=== PATIENT | male | born 1955 | race Caucasian/White ===

== ENCOUNTER 2016-09-19 09:52 | Inpatient (IN) | payer MEDICAID ==
[~2016-09-19] VITALS: Ht 152.4 cm; Wt 61.7 kg
[2016-09-19] VITALS: BP 116/79
[2016-09-19] MEDS ORDERED: METO100T5 PO (11:13)
[2016-09-19] MEDS ORDERED: LISI-186 PO (11:13)
[2016-09-19] MEDS ORDERED: ATOR80TA PO (11:13)
[2016-09-19] MEDS ORDERED: ASPI-867 PO (11:13)
[2016-09-19 11:20] LABS: CHLORIDE 103 mEq/L (98-107); HEMATOCRIT. 46.1 % (42.0-52.0); HEMOGLOBIN. 15.7 g/dL (14.0-18.0); INDEX HEMOLYSI 1 (1-3); INDEX ICTERIC 1 (1-4); INDEX LIPEMIC 1 (1-3); MEAN CORPUSCULAR HEMOGLOBIN 31.2 pg (28.0-32.0); MEAN CORPUSCULAR HGB CONC 34.1 g/dL (31.0-37.0); MEAN CORPUSCULAR VOLUME 91.4 fL (80.0-94.0); MEAN PLATELET VOLUME 8.1 fl (7.4-10.4); PLATELET 265 x1000/uL (130-400); RED BLOOD CELL COUNT 5.04 mill/uL (4.7-6.1); RED CELL DISTRIBUTION WIDTH 14.2 % (11.6-14.6); WHITE BLOOD COUNT 15.1 x1000/uL (4.5-11.0)
[2016-09-19 11:28] LABS: ALANINE AMINOTRANSFERASE 42 IU/L (13-61); ALBUMIN 3.9 g/dL (3.4-5.0); ANION GAP 15; CALCIUM 8.5 mg/dL (8.5-10.1); CARBON DIOXIDE 23 mEq/L (21-32); DIFFERENTIAL COMMENT 1; ETHANOL BLOOD < 10 mg/dL; UREA NITROGEN BLOOD 9 mg/dL (7-21)
[2016-09-19 11:30] LABS: eGFR > 60 mL/min (>60)
[2016-09-19 11:34] LABS: PHENYTOIN < 0.4 ug/mL (10-20); VALPROIC ACID < 3.0 ug/mL (50-100)
[2016-09-19 12:05] LABS: PLATELET ESTIMATE NORMAL
[2016-09-19 12:27] LABS: CLARITY URINE CLEAR (CLEAR); COLOR URINE YELLOW (YELLOW); GLUCOSE URINE NEGATIVE (NEGATIVE); KETONES URINE NEGATIVE (NEGATIVE); LEUKOCYTE ESTERASE URINE NEGATIVE (NEGATIVE); NITRITE URINE NEGATIVE (NEGATIVE); OCCULT BLOOD URINE 2+ (NEGATIVE); PH URINE 5.5 (4.5-8.0); PROTEIN URINE 1+ (NEGATIVE); SPECIFIC GRAVITY URINE 1.016 (1.005-1.030); UROBILINOGEN URINE 0.2 E.U./dL (0.2-1.0)
[2016-09-19 12:36] LABS: *AMPHETAMINES SCREEN URINE NEGATIVE (NEGATIVE); *BARBITURATES SCREEN URINE NEGATIVE (NEGATIVE); *BENZODIAZEPINES SCREEN URINE NEGATIVE (NEGATIVE); *COCAINE SCREEN URINE NEGATIVE (NEGATIVE); CANNABINOID URINE SCREEN NEGATIVE (NEGATIVE); ECSTASY MDMA SCREEN URINE NEGATIVE (NEGATIVE); METHADONE URINE SCREEN NEGATIVE (NEGATIVE); OPIATES URINE SCREEN NEGATIVE (NEGATIVE); PHENCYCLIDINE URINE SCREEN NEGATIVE (NEGATIVE)
[2016-09-19 12:49] LABS: BACTERIA URINE 1+; MUCUS URINE 1+ /lpf (NONE/TRACE); WBC URINE 0-2 /hpf (0-2)
[2016-09-19 12:50] LABS: FINE GRANULAR CASTS URINE 0-5 /lpf; HYALINE CASTS URINE 0-5 /lpf
[2016-09-19 12:51] LABS: COARSE GRANULAR CASTS URINE 0-5 /lpf
[2016-09-19] MEDS ORDERED: LORAZEPAM 2MG/ML CPJ ONE (13:08)
[2016-09-19] MEDS ORDERED: LORAZEPAM 2MG/ML CPJ IV ONE (13:15)
[2016-09-19] MEDS ORDERED: PHENYTOIN SODIUM 100MG/2ML VIAL IV ONE ×2 (13:15→13:30)
[2016-09-19] MEDS ORDERED: PHENYTOIN SODIUM 500 MG in SODIUM CHLORIDE 0.9% 50 ML IV SCH (13:30)
[2016-09-19] MEDS ORDERED: FOLIC ACID 1 MG, THIAMINE HCL 100 MG, MVI, ADULT NO.1 10 ML in DEXTROSE 5% WATER 1,000 ML IV ONE ×4 (13:45)
[2016-09-19] MEDS ORDERED: SULFAMETHOXAZOLE/TRIMETHOPRIM 800/160MG TABLET PO ONE (17:00)
[2016-09-19 20:00] VITALS: BP 116/79
[2016-09-19] MEDS ORDERED: LORAZEPAM 2MG/ML CPJ IV PRN (21:00)
[2016-09-19] MEDS ORDERED: DOCUSATE SODIUM 100MG CAPSULE PO PRN (21:00)
[2016-09-19] MEDS ORDERED: ONDANSETRON HCL 4MG/2ML VIAL IV PRN (21:00)
[2016-09-19] MEDS: ACETAMINOPHEN 325MG TABLET PO PRN (22:32)
[2016-09-19 22:47] VITALS: BP 127/88
[2016-09-20] VITALS: BP 115/76
[2016-09-20 04:00] VITALS: BP 114/69
[2016-09-20] MEDS: ACETAMINOPHEN 325MG TABLET PO PRN (04:29)
[2016-09-20 06:16] LABS: BASOPHILS % 0.5 % (0.0-2.0); EOSINOPHILS % 0.1 % (0.0-5.0); HEMATOCRIT. 45.1 % (42.0-52.0); HEMOGLOBIN. 15.5 g/dL (14.0-18.0); LYMPHOCYTES % 11.9 % (20.0-50.0); MEAN CORPUSCULAR HEMOGLOBIN 31.3 pg (28.0-32.0); MEAN CORPUSCULAR HGB CONC 34.4 g/dL (31.0-37.0); MEAN CORPUSCULAR VOLUME 90.9 fL (80.0-94.0); MEAN PLATELET VOLUME 8.1 fl (7.4-10.4); MONOCYTES % 13.3 % (2.0-8.0); NEUTROPHILS % 74.2 % (40.0-76.0); PLATELET 276 x1000/uL (130-400); RED BLOOD CELL COUNT 4.96 mill/uL (4.7-6.1); RED CELL DISTRIBUTION WIDTH 14.3 % (11.6-14.6); WHITE BLOOD COUNT 13.4 x1000/uL (4.5-11.0)
[2016-09-20 07:46] LABS: CHLORIDE 101 mEq/L (98-107); INDEX HEMOLYSI 1 (1-3); INDEX ICTERIC 1 (1-4); INDEX LIPEMIC 1 (1-3)
[2016-09-20 07:55] LABS: ALANINE AMINOTRANSFERASE 37 IU/L (13-61); ALBUMIN 3.7 g/dL (3.4-5.0); ANION GAP 14; CALCIUM 8.8 mg/dL (8.5-10.1); CARBON DIOXIDE 24 mEq/L (21-32); PHENYTOIN 3.9 ug/mL (10-20); UREA NITROGEN BLOOD 10 mg/dL (7-21); eGFR > 60 mL/min (>60)
[2016-09-20 08:00] VITALS: BP 108/72
[2016-09-20] MEDS ORDERED: POTASSIUM CHLORIDE 20MEQ TABLET SR PO SCH (09:00)
[2016-09-20] MEDS ORDERED: FOLIC ACID 1MG TABLET PO SCH (09:00)
[2016-09-20] MEDS ORDERED: MULTIVITAMINS,THER W-MINERALS TABLET PO SCH (09:00)
[2016-09-20] MEDS ORDERED: THIAMINE HCL 100MG TABLET PO SCH (09:00)
[2016-09-20 12:00] VITALS: BP 117/68
[2016-09-20 16:00] VITALS: BP 114/79
[2016-09-20] MEDS ORDERED: PHENYTOIN SODIUM 500 MG in SODIUM CHLORIDE 0.9% 50 ML IV NR (16:30)
[2016-09-20] MEDS ORDERED: PHENYTOIN SODIUM EXTENDED 100MG CAPSULE PO NR (18:00)
[2016-09-20] MEDS ORDERED: PHENYTOIN SODIUM EXTENDED 100MG CAPSULE PO SCH (21:00)
== END 2016-09-20 18:19 | disposition home or self-care (01) | DRG 775 ==
LOC: ER 09:57 → SUPCPDRO 16:52 → 7WST 16:54
PROVIDERS: ADMIT Family Medicine Adult Medicine; ATTEND Family Medicine Adult Medicine
DX: F10.129 Alcohol abuse with intoxication, unspecified (principal); N04.9 Nephrotic syndrome with unspecified morphologic changes; I10 Essential (primary) hypertension; G40.909 Epilepsy, unspecified, not intractable, without status epilepticus; N39.0 Urinary tract infection, site not specified; I25.10 Atherosclerotic heart disease of native coronary artery without angina pectoris; E78.00 Pure hypercholesterolemia, unspecified; R73.9 Hyperglycemia, unspecified; E86.0 Dehydration; D72.829 Elevated white blood cell count, unspecified; I25.2 Old myocardial infarction; Z91.19 Patient's noncompliance with other medical treatment and regimen
CPT/HCPCS: 36415; 70450; 70551; 71010; 73030; 80053; 80165; 80185; 80305; 81001; 83036; 85025; 96365; 96366; 96368; 96375; 99285; G0482; J1165; J2060; J3411; J3490; J7050; J7070

== ENCOUNTER 2017-01-22 08:38 | Emergency (ER) | payer MEDICAID ==
[~2017-01-22] VITALS: Ht 152.4 cm; Wt 64.0 kg
[~2017-01-22 08:38] MED LIST: ASPI-867 PO; ATOR80TA PO; LISI-186 PO; METO100T5 PO
[2017-01-22] MEDS ORDERED: SODIUM CHLORIDE 0.9% 500 ML IV ONE (09:30)
[2017-01-22 09:47] LABS: BASOPHILS % 0.5 % (0.0-2.0); EOSINOPHILS % 0.3 % (0.0-5.0); HEMATOCRIT. 50.5 % (42.0-52.0); HEMOGLOBIN. 17.1 g/dL (14.0-18.0); LYMPHOCYTES % 8.9 % (20.0-50.0); MEAN CORPUSCULAR HEMOGLOBIN 31.3 pg (28.0-32.0); MEAN CORPUSCULAR VOLUME 92.3 fL (80.0-94.0); MEAN PLATELET VOLUME 7.8 fl (7.4-10.4); MONOCYTES % 6.2 % (2.0-8.0); NEUTROPHILS % 84.1 % (40.0-76.0); PLATELET 246 x1000/uL (130-400); RED BLOOD CELL COUNT 5.47 mill/uL (4.7-6.1); RED CELL DISTRIBUTION WIDTH 13.7 % (11.6-14.6)
[2017-01-22 09:52] LABS: CARBON DIOXIDE 29 mEq/L (21-32); CHLORIDE 103 mEq/L (98-107)
[2017-01-22] MEDS ORDERED: PHENYTOIN SODIUM 1,000 MG in SODIUM CHLORIDE 0.9% 100 ML IV ONE (12:45)
[2017-01-22 14:52] VITALS: BP 131/79
== END 2017-01-22 15:47 | disposition home or self-care (01) ==
LOC: ER 08:38
DX: G40.909 Epilepsy, unspecified, not intractable, without status epilepticus (principal); I25.2 Old myocardial infarction; I25.10 Atherosclerotic heart disease of native coronary artery without angina pectoris; E78.00 Pure hypercholesterolemia, unspecified; I11.9 Hypertensive heart disease without heart failure; D72.829 Elevated white blood cell count, unspecified; E87.5 Hyperkalemia; R73.9 Hyperglycemia, unspecified; Z79.82 Long term (current) use of aspirin
CPT/HCPCS: 36415; 80053; 80185; 85025; 93005; 96361; 96365; 96366; 99285; J1165; J7040; J7050; Z7610

== ENCOUNTER 2017-02-11 08:44 | Emergency (ER) | payer MEDICAID ==
[~2017-02-11] VITALS: Ht 157.5 cm; Wt 68.0 kg
[2017-02-11] MEDS ORDERED: ONDANSETRON HCL 4MG/2ML VIAL IV ONE (09:30)
[2017-02-11 09:43] LABS: HEMATOCRIT. 47.9 % (42.0-52.0); HEMOGLOBIN. 16.3 g/dL (14.0-18.0); MEAN CORPUSCULAR HEMOGLOBIN 31.2 pg (28.0-32.0); MEAN CORPUSCULAR VOLUME 91.6 fL (80.0-94.0); MEAN PLATELET VOLUME 8.6 fl (7.4-10.4); PLATELET 252 x1000/uL (130-400); RED BLOOD CELL COUNT 5.23 mill/uL (4.7-6.1); RED CELL DISTRIBUTION WIDTH 13.4 % (11.6-14.6)
[2017-02-11 09:59] LABS: CLARITY URINE CLOUDY (CLEAR); COLOR URINE YELLOW (YELLOW); GLUCOSE URINE NEGATIVE (NEGATIVE); KETONES URINE NEGATIVE (NEGATIVE); LEUKOCYTE ESTERASE URINE NEGATIVE (NEGATIVE); NITRITE URINE NEGATIVE (NEGATIVE); OCCULT BLOOD URINE 1+ (NEGATIVE); PH URINE 5.5 (4.5-8.0); PROTEIN URINE TRACE (NEGATIVE); SPECIFIC GRAVITY URINE 1.016 (1.005-1.030); UROBILINOGEN URINE 0.2 E.U./dL (0.2-1.0)
[2017-02-11 10:03] LABS: CARBON DIOXIDE 20 mEq/L (21-32); CHLORIDE 105 mEq/L (98-107)
[2017-02-11 10:16] LABS: PLATELET ESTIMATE NORMAL
[2017-02-11] MEDS ORDERED: PHENYTOIN SODIUM 1,000 MG in SODIUM CHLORIDE 0.9% 100 ML IV ONE (10:45)
[2017-02-11] MEDS ORDERED: SODIUM CHLORIDE 0.9% 1,000 ML IV ONE (11:00)
[2017-02-11] MEDS ORDERED: PHENYTOIN SODIUM 1,000 MG in SODIUM CHLORIDE 0.9% 100 ML IV NR (11:15)
[2017-02-11 12:08] VITALS: BP 125/76
== END 2017-02-11 13:38 | disposition home or self-care (01) ==
LOC: ER 08:44 → ENRESERV 11:39 → CANRESERV 11:39 → ER 13:38 → CANBEDREQ 14:35
DX: R56.9 Unspecified convulsions (principal); D72.829 Elevated white blood cell count, unspecified; I10 Essential (primary) hypertension; Z79.82 Long term (current) use of aspirin; W06.XXXA Fall from bed, initial encounter; Y93.89 Activity, other specified; Y99.8 Other external cause status; Y92.89 Other specified places as the place of occurrence of the external cause
CPT/HCPCS: 36415; 71010; 80053; 80185; 81001; 85025; 96365; 96375; 99285; J1165; J2405; J7030; Z7610; J7050

== ENCOUNTER 2017-09-14 21:38 | Emergency (ER) | payer SELFPAY ==
[~2017-09-14] VITALS: Ht 165.1 cm; Wt 68.0 kg
[~2017-09-14 21:38] MED LIST changes: +METO100T16 PO; -METO100T5 PO
[2017-09-14] MEDS ORDERED: SODIUM CHLORIDE 0.9% 1,000 ML IV ONE (23:36)
[2017-09-15 00:07] LABS: BASOPHILS % 0.5 % (0.0-2.0); EOSINOPHILS % 0.1 % (0.0-5.0); HEMATOCRIT. 45.4 % (42.0-52.0); HEMOGLOBIN. 15.7 g/dL (14.0-18.0); MEAN CORPUSCULAR HEMOGLOBIN 31.3 pg (28.0-32.0); MEAN CORPUSCULAR VOLUME 90.4 fL (80.0-94.0); MEAN PLATELET VOLUME 8.1 fl (7.4-10.4); MONOCYTES % 6.4 % (2.0-8.0); PLATELET 270 x1000/uL (130-400); RED BLOOD CELL COUNT 5.02 mill/uL (4.7-6.1); RED CELL DISTRIBUTION WIDTH 13.6 % (11.6-14.6)
[2017-09-15 00:09] LABS: CHLORIDE 101 mEq/L (98-107)
[2017-09-15 00:15] LABS: AMMONIA 39 uMol/L (<32)
[2017-09-15 00:17] LABS: ETHANOL BLOOD < 10 mg/dL
[2017-09-15 00:20] LABS: CREATINE KINASE 692 IU/L (39-308)
[2017-09-15 00:29] LABS: CARBAMAZEPINE < 0.5 ug/mL (4-12); PHENOBARBITAL < 2.1 ug/mL (15.0-40.0); VALPROIC ACID < 3.0 ug/mL (50-100)
[2017-09-15 00:34] LABS: PROTHROMBIN TIME 10.7 sec (9.4-11.6)
[2017-09-15 01:10] LABS: CLARITY URINE CLEAR (CLEAR); COLOR URINE YELLOW (YELLOW); KETONES URINE NEGATIVE (NEGATIVE); LEUKOCYTE ESTERASE URINE NEGATIVE (NEGATIVE); NITRITE URINE NEGATIVE (NEGATIVE); OCCULT BLOOD URINE NEGATIVE (NEGATIVE); PROTEIN URINE NEGATIVE (NEGATIVE); SPECIFIC GRAVITY URINE 1.007 (1.005-1.030); UROBILINOGEN URINE 0.2 E.U./dL (0.2-1.0)
[2017-09-15 01:26] LABS: *AMPHETAMINES SCREEN URINE NEGATIVE (NEGATIVE); *BARBITURATES SCREEN URINE NEGATIVE (NEGATIVE); *COCAINE SCREEN URINE NEGATIVE (NEGATIVE)
[2017-09-15 01:27] LABS: *BENZODIAZEPINES SCREEN URINE NEGATIVE (NEGATIVE); CANNABINOID URINE SCREEN NEGATIVE (NEGATIVE); METHADONE URINE SCREEN NEGATIVE (NEGATIVE); OPIATES URINE SCREEN NEGATIVE (NEGATIVE); PHENCYCLIDINE URINE SCREEN NEGATIVE (NEGATIVE)
[2017-09-15] MEDS: LACTULOSE 20G/30ML UDC PO NR ×2 (04:36→06:15)
[2017-09-15] MEDS: PHENYTOIN SODIUM 1,000 MG in SODIUM CHLORIDE 0.9% 100 ML IV NR ×2 (04:37→06:15)
[2017-09-15] MEDS ORDERED: ACETAMINOPHEN 325MG TABLET PO ONE (05:30)
[2017-09-15 06:14] VITALS: BP 124/76
== END 2017-09-15 06:28 | disposition home or self-care (01) ==
LOC: ER 21:48 → CANBEDREQ 09-15 06:32
DX: G40.909 Epilepsy, unspecified, not intractable, without status epilepticus (principal); Z91.14 Patient's other noncompliance with medication regimen; I10 Essential (primary) hypertension; Z79.82 Long term (current) use of aspirin; Z79.899 Other long term (current) drug therapy
CPT/HCPCS: 36415; 70450; 71045; 80053; 80156; 80165; 80184; 80185; 80305; 81003; 82140; 82550; 83605; 83690; 83880; 84443; 84484; 85025; 85610; 87040; 87086; 93005; 96361; 96365; 96366; 99285; G0482; J1165; J7030; Z7610; J7050

== ENCOUNTER 2019-04-06 07:50 | Emergency (ER) | payer OTHER ==
[~2019-04-06] VITALS: Ht 165.1 cm; Wt 68.0 kg
[~2019-04-06 07:50] MED LIST changes: -ASPI-867 PO; +ASPI325T85 PO
[2019-04-06 08:53] LABS: CLARITY URINE CLEAR (CLEAR); COLOR URINE YELLOW (YELLOW); KETONES URINE NEGATIVE (NEGATIVE); LEUKOCYTE ESTERASE URINE NEGATIVE (NEGATIVE); NITRITE URINE NEGATIVE (NEGATIVE); OCCULT BLOOD URINE NEGATIVE (NEGATIVE); PH URINE 5.5 (4.5-8.0); PROTEIN URINE TRACE (NEGATIVE); SPECIFIC GRAVITY URINE 1.015 (1.005-1.030); UROBILINOGEN URINE 0.2 E.U./dL (0.2-1.0)
[2019-04-06 09:06] LABS: OPIATES URINE SCREEN NEGATIVE (NEGATIVE)
[2019-04-06 09:07] LABS: *AMPHETAMINES SCREEN URINE NEGATIVE (NEGATIVE); *BARBITURATES SCREEN URINE NEGATIVE (NEGATIVE); *BENZODIAZEPINES SCREEN URINE NEGATIVE (NEGATIVE); *COCAINE SCREEN URINE NEGATIVE (NEGATIVE); CANNABINOID URINE SCREEN NEGATIVE (NEGATIVE); METHADONE URINE SCREEN NEGATIVE (NEGATIVE); PHENCYCLIDINE URINE SCREEN NEGATIVE (NEGATIVE)
[2019-04-06 11:01] LABS: BASOPHILS % 0.4 % (0.0-2.0); EOSINOPHILS % 0.5 % (0.0-5.0); HEMATOCRIT. 47.5 % (42.0-52.0); HEMOGLOBIN. 16.2 g/dL (14.0-18.0); LYMPHOCYTES % 17.1 % (20.0-50.0); MEAN CORPUSCULAR HEMOGLOBIN 32.4 pg (28.0-32.0); MEAN PLATELET VOLUME 8.9 fl (7.4-10.4); MONOCYTES % 9.4 % (2.0-8.0); NEUTROPHILS % 72.6 % (40.0-76.0); PLATELET 188 x1000/uL (130-400); RED CELL DISTRIBUTION WIDTH 14.1 % (11.6-14.6)
[2019-04-06 11:07] LABS: CHLORIDE 105 mEq/L (98-107)
[2019-04-06 11:13] LABS: ETHANOL BLOOD < 10 mg/dL
[2019-04-06 13:31] VITALS: BP 128/69
== END 2019-04-06 13:35 | disposition home or self-care (01) ==
LOC: ER 07:50
DX: G40.909 Epilepsy, unspecified, not intractable, without status epilepticus (principal); I10 Essential (primary) hypertension
CPT/HCPCS: 36415; 71045; 80305; 80320; 81003; 99284; G0480

== ENCOUNTER 2020-01-07 08:36 | Inpatient (IN) | payer MEDICAID, OTHER ==
[~2020-01-07] VITALS: Ht 165.1 cm; Wt 57.2 kg
[~2020-01-07 08:36] MED LIST changes: +ATOR20TA MT; +DIVA500T3 PO; +KEPP500 MT
[2020-01-07] MEDS ORDERED: ASPIRIN 325MG TABLET PO ONE (09:15)
[2020-01-07 09:32] LABS: BASOPHILS % 1.2 % (0.0-2.0); EOSINOPHILS % 2.8 % (0.0-5.0); HEMATOCRIT. 44.7 % (42.0-52.0); HEMOGLOBIN. 15.3 g/dL (14.0-18.0); LYMPHOCYTES % 31.4 % (20.0-50.0); MEAN CORPUSCULAR HEMOGLOBIN 32.6 pg (28.0-32.0); MEAN CORPUSCULAR VOLUME 95.1 fL (80.0-94.0); MEAN PLATELET VOLUME 8.3 fl (7.4-10.4); MONOCYTES % 10.9 % (2.0-8.0); NEUTROPHILS % 53.7 % (40.0-76.0); PLATELET 223 x1000/uL (130-400); RED CELL DISTRIBUTION WIDTH 13.3 % (11.6-14.6)
[2020-01-07 09:40] LABS: CHLORIDE 107 mEq/L (98-107)
[2020-01-07 09:44] LABS: PARTIAL THROMBOPLASTIN TIME 31.1 sec (23.4-31.0); PROTHROMBIN TIME 10.4 sec (9.6-11.0)
[2020-01-07 09:49] LABS: ETHANOL BLOOD < 10 mg/dL
[2020-01-07] MEDS ORDERED: ASPIRIN 81MG EC TABLET PO ONE (11:30)
[2020-01-07] MEDS ORDERED: ACETAMINOPHEN 325MG TABLET PO PRN (12:00)
[2020-01-07] MEDS ORDERED: NITROGLYCERIN 0.4MG TABLET SL SL PRN (12:00)
[2020-01-07] MEDS ORDERED: TRAZODONE HCL 50MG TABLET PO PRN (12:00)
[2020-01-07] MEDS ORDERED: HYDRALAZINE 20MG/ML VIAL IV PRN (12:00)
[2020-01-07] MEDS ORDERED: ONDANSETRON HCL 4MG/2ML INJ IV PRN (12:00)
[2020-01-07] MEDS ORDERED: HYDROCODONE/ACETAMINOPHEN 5/325MG TABLET PO PRN ×2 (12:00)
[2020-01-07] MEDS ORDERED: LEVETIRACETAM 500MG PREMIX 100 ML IV SCH ×2 (12:15→15:00)
[2020-01-07] MEDS ORDERED: LEVETIRACETAM 500MG TABLET PO SCH (12:30)
[2020-01-07 14:00] VITALS: BP 149/78
[2020-01-07 16:00] VITALS: BP 134/72
[2020-01-07] MEDS: DIVALPROEX SODIUM 500MG DR TABLET PO SCH (18:02)
[2020-01-07 20:00] VITALS: BP_SYST 113; BP_SYST 127; BP_DIAS 72; BP_DIAS 73
[2020-01-07] MEDS ORDERED: ATORVASTATIN CALCIUM 20MG TABLET PO SCH (21:00)
[2020-01-07] MEDS: LEVETIRACETAM 500MG TABLET PO SCH (21:45)
[2020-01-07] MEDS: ATORVASTATIN CALCIUM 40MG TABLET PO SCH (21:45)
[2020-01-07] MEDS: HEPARIN 5000 UNITS/ML VIAL SUBCUT SCH (21:46)
[2020-01-08] VITALS (8 sets, daily range): BP systolic 96–133; BP diastolic 64–79
[2020-01-08 06:57] LABS: CHLORIDE 106 mEq/L (98-107)
[2020-01-08 07:04] LABS: LDL CHOLESTEROL 152 mg/dL (5-100)
[2020-01-08 07:05] LABS: HDL CHOLESTEROL 52 mg/dL (40-59)
[2020-01-08 07:13] LABS: BASOPHILS % 0.9 % (0.0-2.0); EOSINOPHILS % 2.7 % (0.0-5.0); HEMATOCRIT. 44.1 % (42.0-52.0); HEMOGLOBIN. 15.4 g/dL (14.0-18.0); LYMPHOCYTES % 33.9 % (20.0-50.0); MEAN CORPUSCULAR HEMOGLOBIN 32.9 pg (28.0-32.0); MEAN CORPUSCULAR VOLUME 94.3 fL (80.0-94.0); MEAN PLATELET VOLUME 8.7 fl (7.4-10.4); MONOCYTES % 8.8 % (2.0-8.0); NEUTROPHILS % 53.7 % (40.0-76.0); PLATELET 222 x1000/uL (130-400); RED BLOOD CELL COUNT 4.67 mill/uL (4.7-6.1); RED CELL DISTRIBUTION WIDTH 13.3 % (11.6-14.6)
[2020-01-08] MEDS: HEPARIN 5000 UNITS/ML VIAL SUBCUT SCH ×2 (09:00→20:45)
[2020-01-08] MEDS ORDERED: ASPIRIN 81MG EC TABLET PO SCH (09:00)
[2020-01-08] MEDS ORDERED: HEPARIN SODIUM 1,000 UNIT/1ML VIAL IV ONE (10:00)
[2020-01-08] MEDS ORDERED: IODIXANOL 320MG/ML 100 ML BOTTLE IV ONE (12:18)
[2020-01-08] MEDS ORDERED: MIDAZOLAM HCL 2 MG/2 ML VIAL ONE (12:18)
[2020-01-08] MEDS ORDERED: FENTANYL CITRATE/PF 50MCG/ML 2ML VIAL ONE (12:18)
[2020-01-08] MEDS ORDERED: LIDOCAINE HCL 1% 20ML VIAL (Pyxis) INJ ONE (12:18)
[2020-01-08] MEDS ORDERED: IOHEXOL-300 100 ML BOTTLE ONE (13:06)
[2020-01-08] MEDS ORDERED: CLOPIDOGREL 75MG TABLET ONE (13:12)
[2020-01-08] MEDS ORDERED: ACETAMINOPHEN 325MG TABLET PO PRN (13:45)
[2020-01-08] MEDS ORDERED: ONDANSETRON HCL 4MG/2ML INJ IV PRN (13:45)
[2020-01-08] MEDS ORDERED: ATROPINE SULFATE 1MG/10ML SYR IV PRN (13:45)
[2020-01-08] MEDS ORDERED: ASPIRIN 325MG TABLET ONE (13:47)
[2020-01-08] MEDS: LEVETIRACETAM 500MG TABLET PO SCH ×2 (15:43→20:45)
[2020-01-08] MEDS: DIVALPROEX SODIUM 500MG DR TABLET PO SCH (15:43)
[2020-01-08] MEDS: ATORVASTATIN CALCIUM 40MG TABLET PO SCH (20:45)
[2020-01-09] VITALS (7 sets, daily range): BP systolic 107–134; BP diastolic 66–86
[2020-01-09 06:24] LABS: BASOPHILS % 0.7 % (0.0-2.0); EOSINOPHILS % 4.3 % (0.0-5.0); HEMATOCRIT. 43.8 % (42.0-52.0); HEMOGLOBIN. 15.1 g/dL (14.0-18.0); LYMPHOCYTES % 28.3 % (20.0-50.0); MEAN CORPUSCULAR HEMOGLOBIN 32.9 pg (28.0-32.0); MEAN CORPUSCULAR VOLUME 95.5 fL (80.0-94.0); MEAN PLATELET VOLUME 8.3 fl (7.4-10.4); MONOCYTES % 10.4 % (2.0-8.0); NEUTROPHILS % 56.3 % (40.0-76.0); PLATELET 215 x1000/uL (130-400); RED BLOOD CELL COUNT 4.58 mill/uL (4.7-6.1); RED CELL DISTRIBUTION WIDTH 13.2 % (11.6-14.6)
[2020-01-09 06:53] LABS: CHLORIDE 107 mEq/L (98-107)
[2020-01-09] MEDS ORDERED: ASPIRIN 325MG TABLET PO SCH (09:00)
[2020-01-09] MEDS ORDERED: CLOPIDOGREL 75MG TABLET PO SCH (09:00)
[2020-01-09] MEDS: HEPARIN 5000 UNITS/ML VIAL SUBCUT SCH (09:01)
[2020-01-09] MEDS: DIVALPROEX SODIUM 500MG DR TABLET PO SCH (09:01)
[2020-01-09] MEDS: LEVETIRACETAM 500MG TABLET PO SCH (09:01)
== END 2020-01-09 11:57 | disposition home or self-care (01) | DRG 175 ==
LOC: ER 08:36 → MERGE 09:47 → 5WST 09:47 → EDBEDREQ 09:52 → ENRESERV 12:02 → 3WST 01-08 14:31
PROVIDERS: ADMIT Internal Medicine; ATTEND Internal Medicine
PROC: 027034Z Dilation of Coronary Artery, One Artery with Drug-eluting Intraluminal Device, Percutaneous Approach (ICD-10-PCS; principal; 2020-01-08)
PROC: B211YZZ Fluoroscopy of Multiple Coronary Arteries using Other Contrast (ICD-10-PCS; 2020-01-08)
PROC: 4A023N7 Measurement of Cardiac Sampling and Pressure, Left Heart, Percutaneous Approach (ICD-10-PCS; 2020-01-08)
PROC: B215YZZ Fluoroscopy of Left Heart using Other Contrast (ICD-10-PCS; 2020-01-08)
DX: I25.118 Atherosclerotic heart disease of native coronary artery with other forms of angina pectoris (principal); G40.909 Epilepsy, unspecified, not intractable, without status epilepticus; I10 Essential (primary) hypertension; E78.5 Hyperlipidemia, unspecified; E11.9 Type 2 diabetes mellitus without complications; F10.10 Alcohol abuse, uncomplicated; E78.00 Pure hypercholesterolemia, unspecified; Z20.828 Contact with and (suspected) exposure to other viral communicable diseases; Y90.9 Presence of alcohol in blood, level not specified; I25.2 Old myocardial infarction; Z87.820 Personal history of traumatic brain injury; Z95.1 Presence of aortocoronary bypass graft; Z79.899 Other long term (current) drug therapy
CPT/HCPCS: 36415; 71045; 80053; 80061; 80320; 83036; 83735; 83880; 84484; 85025; 85347; 92928; 93005; 93458; 99285; C1725; C1769; C1874; C1887; C1893; J1644; J1953; J2250; J3010; J3490; Q9967; G0480; U0003-CS

== ENCOUNTER 2020-01-29 23:24 | Inpatient (IN) | payer MEDICAID, OTHER ==
[~2020-01-29] VITALS: Ht 154.9 cm; Wt 57.2 kg
[2020-01-29] MEDS ORDERED: ONDANSETRON HCL 4MG/2ML INJ IV STA (23:44)
[2020-01-29] MEDS ORDERED: SODIUM CHLORIDE 0.9% 1,000 ML IV ONE (23:44)
[2020-01-29] MEDS ORDERED: MORPHINE SULFATE 4 MG/ML CPJ (NOT FOR IM USE) IV STA (23:44)
[2020-01-29] MEDS ORDERED: LEVETIRACETAM 500MG PREMIX 100 ML IV ONE (23:45)
[2020-01-29] MEDS ORDERED: LORAZEPAM 2MG/ML CPJ ONE (23:57)
[2020-01-30] MEDS ORDERED: LORAZEPAM 2MG/ML CPJ IV ONE
[2020-01-30 00:05] LABS: BASOPHILS % 0.5 % (0.0-2.0); EOSINOPHILS % 0.1 % (0.0-5.0); HEMATOCRIT. 45.1 % (42.0-52.0); HEMOGLOBIN. 15.6 g/dL (14.0-18.0); LYMPHOCYTES % 13.5 % (20.0-50.0); MEAN CORPUSCULAR HEMOGLOBIN 32.7 pg (28.0-32.0); MEAN CORPUSCULAR VOLUME 94.5 fL (80.0-94.0); MEAN PLATELET VOLUME 8.3 fl (7.4-10.4); MONOCYTES % 6.5 % (2.0-8.0); NEUTROPHILS % 79.4 % (40.0-76.0); PLATELET 230 x1000/uL (130-400); RED BLOOD CELL COUNT 4.77 mill/uL (4.7-6.1); RED CELL DISTRIBUTION WIDTH 13.2 % (11.6-14.6)
[2020-01-30 00:06] LABS: CHLORIDE 101 mEq/L (98-107)
[2020-01-30 01:15] LABS: CLARITY URINE CLEAR (CLEAR); COLOR URINE YELLOW (YELLOW); KETONES URINE NEGATIVE (NEGATIVE); LEUKOCYTE ESTERASE URINE NEGATIVE (NEGATIVE); NITRITE URINE NEGATIVE (NEGATIVE); OCCULT BLOOD URINE NEGATIVE (NEGATIVE); PH URINE 6.5 (4.5-8.0); PROTEIN URINE NEGATIVE (NEGATIVE); SPECIFIC GRAVITY URINE 1.015 (1.005-1.030)
[2020-01-30] MEDS ORDERED: ASPI-1158 MT (04:06)
[2020-01-30] MEDS ORDERED: METO25TA6 MT (04:06)
[2020-01-30] MEDS ORDERED: MULT1TAB67 MT (04:07)
[2020-01-30] MEDS ORDERED: CLOP75TA33 MT (04:08)
[2020-01-30] MEDS ORDERED: VITA0.4T8 MT (04:08)
[2020-01-30] MEDS ORDERED: FOLI-43 MT (04:09)
[2020-01-30] MEDS ORDERED: LEVE500T98 MT (04:10)
[2020-01-30 04:14] VITALS: BP 141/79
[2020-01-30 05:04] VITALS: BP 141/79
[2020-01-30] MEDS ORDERED: LORAZEPAM 2MG/ML CPJ IV PRN (05:15)
[2020-01-30] MEDS ORDERED: DOCUSATE SODIUM 100MG CAPSULE PO PRN (05:15)
[2020-01-30] MEDS ORDERED: MORPHINE SULFATE 2 MG/ML CPJ (NOT FOR IM USE) IV PRN (05:15)
[2020-01-30] MEDS ORDERED: IPRATROPIUM/ALBUTEROL 0.5-3(2.5)MG/3ML NEB HHN PRN (05:15)
[2020-01-30] MEDS ORDERED: CLONIDINE 0.1MG TABLET PO PRN (05:15)
[2020-01-30] MEDS ORDERED: ONDANSETRON HCL 4MG/2ML INJ IV PRN (05:15)
[2020-01-30] MEDS ORDERED: HYDROCODONE/ACETAMINOPHEN 10/325MG TABLET PO PRN (05:15)
[2020-01-30] MEDS ORDERED: ACETAMINOPHEN 325MG TABLET PO PRN (05:15)
[2020-01-30] MEDS ORDERED: DIPHENHYDRAMINE 50MG/ML VIAL IV PRN (05:15)
[2020-01-30] MEDS ORDERED: GUAIFENESIN 200MG/10ML SUGAR FREE UDC PO PRN (05:15)
[2020-01-30] MEDS ORDERED: MAGNESIUM/ALUMINUM HYDROXIDE/SIMETHICONE 30ML UDC PO PRN (05:15)
[2020-01-30] MEDS: SODIUM CHLORIDE 0.9% INJ 3ML FLUSH IVF SCH ×3 (05:42→20:26)
[2020-01-30] MEDS: ENOXAPARIN 40MG/0.4ML SYR SUBCUT SCH (05:42)
[2020-01-30 06:50] LABS: *AMPHETAMINES SCREEN URINE NEGATIVE (NEGATIVE)
[2020-01-30 06:52] LABS: *BARBITURATES SCREEN URINE NEGATIVE (NEGATIVE); *BENZODIAZEPINES SCREEN URINE NEGATIVE (NEGATIVE); *COCAINE SCREEN URINE NEGATIVE (NEGATIVE); METHADONE URINE SCREEN NEGATIVE (NEGATIVE); OPIATES URINE SCREEN NEGATIVE (NEGATIVE); PHENCYCLIDINE URINE SCREEN NEGATIVE (NEGATIVE)
[2020-01-30 06:53] LABS: CANNABINOID URINE SCREEN NEGATIVE (NEGATIVE)
[2020-01-30 08:00] VITALS: BP 131/71
[2020-01-30] MEDS: LEVETIRACETAM 500MG TABLET PO SCH ×2 (09:26→20:26)
[2020-01-30 12:00] VITALS: BP 134/72
[2020-01-30 19:55] VITALS: BP 129/77
[2020-01-30 23:52] VITALS: BP 123/68
[2020-01-31 04:56] VITALS: BP 109/67
[2020-01-31] MEDS: SODIUM CHLORIDE 0.9% INJ 3ML FLUSH IVF SCH ×3 (05:59→20:29)
[2020-01-31] MEDS: ENOXAPARIN 40MG/0.4ML SYR SUBCUT SCH (06:00)
[2020-01-31 07:05] LABS: BASOPHILS % 0.7 % (0.0-2.0); EOSINOPHILS % 0.2 % (0.0-5.0); HEMATOCRIT. 44.9 % (42.0-52.0); HEMOGLOBIN. 15.5 g/dL (14.0-18.0); LYMPHOCYTES % 20.5 % (20.0-50.0); MEAN CORPUSCULAR HEMOGLOBIN 32.6 pg (28.0-32.0); MEAN CORPUSCULAR VOLUME 94.4 fL (80.0-94.0); MEAN PLATELET VOLUME 8.5 fl (7.4-10.4); MONOCYTES % 12.8 % (2.0-8.0); NEUTROPHILS % 65.8 % (40.0-76.0); PLATELET 217 x1000/uL (130-400); RED BLOOD CELL COUNT 4.75 mill/uL (4.7-6.1)
[2020-01-31 07:21] LABS: CHLORIDE 106 mEq/L (98-107)
[2020-01-31 08:00] VITALS: BP 126/74
[2020-01-31] MEDS: LEVETIRACETAM 500MG TABLET PO SCH ×2 (09:29→20:30)
[2020-01-31] MEDS: MULTIVITAMINS,THER W-MINERALS TABLET PO SCH (11:03)
[2020-01-31] MEDS: FOLIC ACID 1MG TABLET PO SCH (11:03)
[2020-01-31] MEDS: THIAMINE HCL 100MG TABLET PO SCH (11:25)
[2020-01-31 11:59] VITALS: BP 133/67
[2020-01-31 16:00] VITALS: BP 128/72
[2020-01-31 20:00] VITALS: BP 126/71
[2020-02-01] VITALS: BP 126/65
[2020-02-01 04:00] VITALS: BP 123/81
[2020-02-01] MEDS: ENOXAPARIN 40MG/0.4ML SYR SUBCUT SCH (05:37)
[2020-02-01] MEDS: SODIUM CHLORIDE 0.9% INJ 3ML FLUSH IVF SCH ×2 (05:37→13:12)
[2020-02-01 08:00] VITALS: BP 150/90
[2020-02-01] MEDS: LEVETIRACETAM 500MG TABLET PO SCH (09:37)
[2020-02-01] MEDS: FOLIC ACID 1MG TABLET PO SCH (09:37)
[2020-02-01] MEDS: MULTIVITAMINS,THER W-MINERALS TABLET PO SCH (09:37)
[2020-02-01] MEDS: THIAMINE HCL 100MG TABLET PO SCH (09:39)
[2020-02-01 12:00] VITALS: BP 133/78
[2020-02-01 15:29] VITALS: BP 133/78
[2020-02-01 16:00] VITALS: BP_SYST 116; BP_SYST 136; BP_DIAS 69; BP_DIAS 71
== END 2020-02-01 17:20 | disposition home or self-care (01) | DRG 53 ==
LOC: ER 23:24 → 8WST 01-30 01:44 → EDBEDREQ 01-30 01:58 → EDBEDREQTM 01-30 01:58 → ENRESERV 01-30 02:40
PROVIDERS: ADMIT Internal Medicine; ATTEND Internal Medicine
DX: G40.901 Epilepsy, unspecified, not intractable, with status epilepticus (principal); E78.00 Pure hypercholesterolemia, unspecified; E78.5 Hyperlipidemia, unspecified; F10.11 Alcohol abuse, in remission; I10 Essential (primary) hypertension; I25.2 Old myocardial infarction; Z79.02 Long term (current) use of antithrombotics/antiplatelets; Z79.82 Long term (current) use of aspirin; Z79.899 Other long term (current) drug therapy; Z95.5 Presence of coronary angioplasty implant and graft
CPT/HCPCS: 36415; 71045; 80053; 80305; 80320; 81003; 82542; 85025; 93005; 95816; 99285; J1650; J1953; J2060; J2405; J7030; G0480

== ENCOUNTER 2021-02-03 11:22 | Inpatient (IN) | payer OTHER ==
[~2021-02-03] VITALS: Ht 152.4 cm; Wt 60.3 kg
[~2021-02-03 11:22] MED LIST changes: +ASPI-1406 MT; -ASPI325T85 PO; -ATOR80TA PO; +CLOP75TA33 MT; +FOLI-43 MT; +LEVE500T98 MT; -LISI-186 PO; -METO100T16 PO; +METO25TA6 MT; +MULT-622 MT; +VITA0.4T8 MT
[2021-02-03] MEDS ORDERED: NITROGLYCERIN OINT 1GM/INCH UDPKT TD ONE (11:45)
[2021-02-03 12:37] LABS: CHLORIDE 114 mEq/L (98-107)
[2021-02-03 13:21] LABS: HEMATOCRIT. 39.7 % (42.0-52.0); HEMOGLOBIN. 13.5 g/dL (14.0-18.0); LYMPHOCYTES % 25.7 % (20.0-50.0); MEAN CORPUSCULAR HEMOGLOBIN 32.1 pg (28.0-32.0); MEAN CORPUSCULAR VOLUME 94.3 fL (80.0-94.0); MEAN PLATELET VOLUME 8.4 fl (7.4-10.4); MONOCYTES % 11.2 % (2.0-8.0); NEUTROPHILS % 60.1 % (40.0-76.0); PLATELET 214 x1000/uL (130-400); RED BLOOD CELL COUNT 4.21 mill/uL (4.7-6.1); RED CELL DISTRIBUTION WIDTH 13.4 % (11.6-14.6)
[2021-02-03] MEDS ORDERED: LORAZEPAM 2MG/ML CPJ IV PRN (21:15)
[2021-02-03] MEDS ORDERED: ACETAMINOPHEN 325MG TABLET PO PRN (21:15)
[2021-02-03] MEDS ORDERED: HYDROCODONE/ACETAMINOPHEN 5/325MG TABLET PO PRN (21:15)
[2021-02-03] MEDS ORDERED: DOCUSATE SODIUM 100MG CAPSULE PO PRN (21:15)
[2021-02-03] MEDS ORDERED: ENOXAPARIN 40MG/0.4ML SYR SUBCUT SCH (21:15)
[2021-02-03] MEDS ORDERED: CLONIDINE 0.1MG TABLET PO PRN (21:15)
[2021-02-03] MEDS ORDERED: ONDANSETRON HCL 4MG/2ML INJ IV PRN (21:15)
[2021-02-03] MEDS ORDERED: IPRATROPIUM/ALBUTEROL 0.5-3(2.5)MG/3ML NEB NEB PRN (21:15)
[2021-02-03] MEDS ORDERED: NA PHOS,M-B/NA PHOS,DI-BA ENEMA 118ML PR PRN (21:15)
[2021-02-03] MEDS ORDERED: MAGNESIUM/ALUMINUM HYDROXIDE/SIMETHICONE 30ML UDC PO PRN (21:15)
[2021-02-03] MEDS ORDERED: MORPHINE SULFATE 2 MG/ML CPJ (NOT FOR IM USE) IV PRN (21:15)
[2021-02-03] MEDS ORDERED: GUAIFENESIN 200MG/10ML SUGAR FREE UDC PO PRN (21:15)
[2021-02-03] MEDS ORDERED: DIPHENHYDRAMINE 50MG/ML VIAL IV PRN (21:15)
[2021-02-04] VITALS: BP 155/70
[2021-02-04 01:06] LABS: CHLORIDE 109 mEq/L (98-107)
[2021-02-04] MEDS: METOPROLOL TARTRATE 25MG TABLET PO SCH ×3 (03:18→21:24)
[2021-02-04] MEDS: ATORVASTATIN CALCIUM 40MG TABLET PO SCH ×2 (03:18→21:24)
[2021-02-04] MEDS: LEVETIRACETAM 500MG TABLET PO SCH ×3 (03:18→21:24)
[2021-02-04 04:00] VITALS: BP 126/68
[2021-02-04 07:35] LABS: PARTIAL THROMBOPLASTIN TIME 27.2 sec (23.4-31.0); PROTHROMBIN TIME 10.9 sec (9.6-11.0)
[2021-02-04 07:37] LABS: BASOPHILS % 0.7 % (0.0-2.0); EOSINOPHILS % 2.1 % (0.0-5.0); HEMATOCRIT. 43.3 % (42.0-52.0); HEMOGLOBIN. 14.7 g/dL (14.0-18.0); LYMPHOCYTES % 22.9 % (20.0-50.0); MEAN CORPUSCULAR HEMOGLOBIN 31.9 pg (28.0-32.0); MEAN CORPUSCULAR VOLUME 94.1 fL (80.0-94.0); MEAN PLATELET VOLUME 8.6 fl (7.4-10.4); MONOCYTES % 12.1 % (2.0-8.0); NEUTROPHILS % 62.2 % (40.0-76.0); PLATELET 216 x1000/uL (130-400); RED CELL DISTRIBUTION WIDTH 13.5 % (11.6-14.6)
[2021-02-04 07:41] LABS: CHLORIDE 110 mEq/L (98-107)
[2021-02-04 07:55] LABS: LDL CHOLESTEROL 89 mg/dL (5-100)
[2021-02-04 07:57] LABS: HDL CHOLESTEROL 49 mg/dL (40-59); T4 FREE 0.82 ng/dL (0.76-1.46)
[2021-02-04 08:00] VITALS: BP 126/64
[2021-02-04] MEDS ORDERED: ASPIRIN 81MG EC TABLET PO SCH (09:00)
[2021-02-04] MEDS: ASPIRIN 81MG TABLET PO SCH (09:29)
[2021-02-04] MEDS: CLOPIDOGREL 75MG TABLET PO SCH (09:30)
[2021-02-04] MEDS: ISOSORBIDE MONONITRATE 30MG TABLET SR 24HR PO SCH (09:30)
[2021-02-04 12:00] VITALS: BP 131/70
[2021-02-04 16:00] VITALS: BP 129/65
[2021-02-04 20:00] VITALS: BP 127/69
[2021-02-04] MEDS ORDERED: NALOXONE HCL 0.4MG/ML VIAL IV PRN (21:15)
[2021-02-05] VITALS (7 sets, daily range): BP systolic 101–128; BP diastolic 56–76
[2021-02-05 06:25] LABS: CHLORIDE 104 mEq/L (98-107); PARTIAL THROMBOPLASTIN TIME 28.5 sec (23.4-31.0)
[2021-02-05 06:31] LABS: BASOPHILS % 0.7 % (0.0-2.0); EOSINOPHILS % 2.4 % (0.0-5.0); HEMATOCRIT. 45.8 % (42.0-52.0); HEMOGLOBIN. 15.4 g/dL (14.0-18.0); LYMPHOCYTES % 25.8 % (20.0-50.0); MEAN CORPUSCULAR HEMOGLOBIN 31.6 pg (28.0-32.0); MEAN CORPUSCULAR VOLUME 93.9 fL (80.0-94.0); MEAN PLATELET VOLUME 8.7 fl (7.4-10.4); MONOCYTES % 13.7 % (2.0-8.0); NEUTROPHILS % 57.4 % (40.0-76.0); PLATELET 238 x1000/uL (130-400); RED BLOOD CELL COUNT 4.88 mill/uL (4.7-6.1); RED CELL DISTRIBUTION WIDTH 13.1 % (11.6-14.6)
[2021-02-05] MEDS: ASPIRIN 81MG TABLET PO SCH (09:29)
[2021-02-05] MEDS: LEVETIRACETAM 500MG TABLET PO SCH ×2 (09:29→20:11)
[2021-02-05] MEDS: CLOPIDOGREL 75MG TABLET PO SCH (09:29)
[2021-02-05] MEDS: METOPROLOL TARTRATE 25MG TABLET PO SCH ×2 (09:29→20:11)
[2021-02-05] MEDS: ISOSORBIDE MONONITRATE 30MG TABLET SR 24HR PO SCH (09:30)
[2021-02-05] MEDS ORDERED: PHENYLEPHRINE 100MCG/ML 10ML VIAL (CATH LAB) IV ONE (09:31)
[2021-02-05] MEDS ORDERED: NITROGLYCERIN 50MCG/ML 10ML VIAL (CATH LAB) IV ONE (09:31)
[2021-02-05] MEDS ORDERED: SODIUM CHLORIDE 0.9% 500 ML IV ONE (10:15)
[2021-02-05] MEDS ORDERED: ASPIRIN/SOD BICARB/CITRIC ACID 324MG TAB EFF ONE (12:57)
[2021-02-05] MEDS ORDERED: MIDAZOLAM HCL 5 MG/5 ML VIAL ONE (13:10)
[2021-02-05] MEDS ORDERED: LIDOCAINE HCL 1% 20ML VIAL (Pyxis) INJ ONE (13:10)
[2021-02-05] MEDS ORDERED: FENTANYL CITRATE/PF 50MCG/ML 5ML VIAL ONE (13:10)
[2021-02-05] MEDS ORDERED: IODIXANOL 320MG/ML 100 ML BOTTLE IV ONE (13:11)
[2021-02-05] MEDS ORDERED: HEPARIN 1000 UNITS/ML 10ML ONE (13:11)
[2021-02-05] MEDS ORDERED: IOHEXOL-300 100 ML BOTTLE ONE (13:11)
[2021-02-05] MEDS ORDERED: ACETAMINOPHEN 325MG TABLET PO PRN (14:45)
[2021-02-05] MEDS ORDERED: MORPHINE SULFATE 2 MG/ML CPJ (NOT FOR IM USE) IV PRN ×2 (14:45)
[2021-02-05] MEDS ORDERED: ONDANSETRON HCL 4MG/2ML INJ IV PRN (14:45)
[2021-02-05] MEDS ORDERED: SODIUM CHLORIDE 0.45% 1,000 ML IV ONE (14:45)
[2021-02-05] MEDS ORDERED: CLOPIDOGREL 75MG TABLET PO ONE (14:45)
[2021-02-05] MEDS ORDERED: ATROPINE SULFATE 1MG/10ML SYR IV PRN (14:45)
[2021-02-05] MEDS ORDERED: CLOPIDOGREL 75MG TABLET ONE (14:45)
[2021-02-05] MEDS: ATORVASTATIN CALCIUM 40MG TABLET PO SCH (20:11)
[2021-02-06] VITALS (7 sets, daily range): BP systolic 98–130; BP diastolic 58–76
[2021-02-06 09:00] LABS: CHLORIDE 106 mEq/L (98-107)
[2021-02-06 09:10] LABS: BASOPHILS % 0.7 % (0.0-2.0); EOSINOPHILS % 1.8 % (0.0-5.0); HEMATOCRIT. 48.7 % (42.0-52.0); HEMOGLOBIN. 16.2 g/dL (14.0-18.0); LYMPHOCYTES % 18.5 % (20.0-50.0); MEAN CORPUSCULAR HEMOGLOBIN 31.7 pg (28.0-32.0); MEAN CORPUSCULAR VOLUME 95.1 fL (80.0-94.0); MEAN PLATELET VOLUME 8.6 fl (7.4-10.4); MONOCYTES % 10.1 % (2.0-8.0); NEUTROPHILS % 68.9 % (40.0-76.0); PLATELET 237 x1000/uL (130-400); RED BLOOD CELL COUNT 5.13 mill/uL (4.7-6.1); RED CELL DISTRIBUTION WIDTH 13.1 % (11.6-14.6)
[2021-02-06] MEDS: ISOSORBIDE MONONITRATE 30MG TABLET SR 24HR PO SCH (09:20)
[2021-02-06] MEDS: LEVETIRACETAM 500MG TABLET PO SCH (09:20)
[2021-02-06] MEDS: METOPROLOL TARTRATE 25MG TABLET PO SCH (09:20)
[2021-02-06] MEDS: ASPIRIN 81MG TABLET PO SCH (09:20)
[2021-02-06] MEDS: CLOPIDOGREL 75MG TABLET PO SCH (09:21)
== END 2021-02-06 14:35 | disposition home or self-care (01) | DRG 247 ==
LOC: ER 11:22 → EDBEDREQ 15:21 → EDBEDREQTM 15:21 → MICUSO 19:10 → 6WST 20:37 → 3WST 02-05 16:50
PROVIDERS: ADMIT Internal Medicine; ATTEND Internal Medicine
PROC: 027135Z Dilation of Coronary Artery, Two Arteries with Two Drug-eluting Intraluminal Devices, Percutaneous Approach (ICD-10-PCS; principal; 2021-02-05)
PROC: 4A023N7 Measurement of Cardiac Sampling and Pressure, Left Heart, Percutaneous Approach (ICD-10-PCS; 2021-02-05)
PROC: B2111ZZ Fluoroscopy of Multiple Coronary Arteries using Low Osmolar Contrast (ICD-10-PCS; 2021-02-05)
DX: T82.855A Stenosis of coronary artery stent, initial encounter (principal); I25.118 Atherosclerotic heart disease of native coronary artery with other forms of angina pectoris; I10 Essential (primary) hypertension; Z20.822 Contact with and (suspected) exposure to COVID-19; E78.5 Hyperlipidemia, unspecified; E78.00 Pure hypercholesterolemia, unspecified; Y84.0 Cardiac catheterization as the cause of abnormal reaction of the patient, or of later complication, without mention of misadventure at the time of the procedure; G40.909 Epilepsy, unspecified, not intractable, without status epilepticus; D64.9 Anemia, unspecified; F10.11 Alcohol abuse, in remission; I25.2 Old myocardial infarction; Z79.899 Other long term (current) drug therapy; Y92.89 Other specified places as the place of occurrence of the external cause; Z95.5 Presence of coronary angioplasty implant and graft; Z87.820 Personal history of traumatic brain injury
CPT/HCPCS: 36415; 71045; 80048; 80053; 80061; 83735; 83880; 84439; 84443; 84484; 85025; 85347; 87426; 92928; 92929; 93005; 93458; 99285; C1725; C1769; C1874; C1887; C1893; J1644; J2250; J2370; J3010; J3490; J7040; Q9967

== ENCOUNTER 2021-12-08 16:59 | Inpatient (IN) | payer OTHER, MEDICAID ==
[~2021-12-08] VITALS: Ht 152.4 cm; Wt 58.1 kg
[2021-12-08 17:34] LABS: BASOPHILS % 0.8 % (0.0-2.0); EOSINOPHILS % 0.7 % (0.0-5.0); HEMATOCRIT. 27.7 % (42.0-52.0); HEMOGLOBIN. 9.1 g/dL (14.0-18.0); LYMPHOCYTES % 11.7 % (20.0-50.0); MEAN PLATELET VOLUME 7.5 fl (7.4-10.4); MONOCYTES % 7.5 % (2.0-8.0); NEUTROPHILS % 79.3 % (40.0-76.0); PLATELET 328 x1000/uL (130-400); RED BLOOD CELL COUNT 3.15 mill/uL (4.7-6.1); RED CELL DISTRIBUTION WIDTH 17.1 % (11.6-14.6)
[2021-12-08 17:45] LABS: CHLORIDE 103 mEq/L (98-107)
[2021-12-08 17:55] LABS: ETHANOL BLOOD < 10 mg/dL
[2021-12-08] MEDS ORDERED: ASPIRIN 81MG TABLET PO ONE (19:15)
[2021-12-08 19:19] LABS: CLARITY URINE CLEAR (CLEAR); COLOR URINE YELLOW (YELLOW); KETONES URINE NEGATIVE (NEGATIVE); LEUKOCYTE ESTERASE URINE NEGATIVE (NEGATIVE); NITRITE URINE NEGATIVE (NEGATIVE); OCCULT BLOOD URINE NEGATIVE (NEGATIVE); PROTEIN URINE NEGATIVE (NEGATIVE); SPECIFIC GRAVITY URINE 1.006 (1.005-1.030); UROBILINOGEN URINE 0.2 E.U./dL (0.2-1.0)
[2021-12-08 19:38] LABS: *AMPHETAMINES SCREEN URINE NEGATIVE (NEGATIVE); *BARBITURATES SCREEN URINE NEGATIVE (NEGATIVE); *BENZODIAZEPINES SCREEN URINE NEGATIVE (NEGATIVE); *COCAINE SCREEN URINE NEGATIVE (NEGATIVE); CANNABINOID URINE SCREEN NEGATIVE (NEGATIVE); METHADONE URINE SCREEN NEGATIVE (NEGATIVE); OPIATES URINE SCREEN NEGATIVE (NEGATIVE); PHENCYCLIDINE URINE SCREEN NEGATIVE (NEGATIVE)
[2021-12-08] MEDS ORDERED: DIPHENHYDRAMINE 50MG/ML VIAL IV PRN (22:30)
[2021-12-08] MEDS ORDERED: DOCUSATE SODIUM 100MG CAPSULE PO PRN (22:30)
[2021-12-08] MEDS ORDERED: MORPHINE SULFATE 2 MG/ML CPJ (NOT FOR IM USE) IV PRN (22:30)
[2021-12-08] MEDS ORDERED: GUAIFENESIN 200MG/10ML SUGAR FREE UDC PO PRN (22:30)
[2021-12-08] MEDS ORDERED: NALOXONE HCL 0.4MG/ML VIAL IV PRN (22:30)
[2021-12-08] MEDS ORDERED: ACETAMINOPHEN 325MG TABLET PO PRN (22:30)
[2021-12-08] MEDS ORDERED: MAGNESIUM/ALUMINUM HYDROXIDE/SIMETHICONE 30ML UDC PO PRN (22:30)
[2021-12-08] MEDS ORDERED: NA PHOS,M-B/NA PHOS,DI-BA ENEMA 118ML PR PRN (22:30)
[2021-12-08] MEDS ORDERED: ONDANSETRON HCL 4MG/2ML INJ IV PRN (22:30)
[2021-12-08] MEDS ORDERED: CLONIDINE 0.1MG TABLET PO PRN (22:30)
[2021-12-08] MEDS ORDERED: HYDROCODONE/ACETAMINOPHEN 5/325MG TABLET PO PRN (22:30)
[2021-12-08] MEDS: SODIUM CHLORIDE 0.45% 1,000 ML IV SCH (23:17)
[2021-12-09 00:52] LABS: CHLORIDE 103 mEq/L (98-107)
[2021-12-09 05:02] LABS: CHLORIDE 103 mEq/L (98-107)
[2021-12-09] MEDS: ASPIRIN 81MG EC TABLET PO SCH (13:16)
[2021-12-09] MEDS: CLOPIDOGREL 75MG TABLET PO SCH (13:16)
[2021-12-09 16:00] VITALS: BP 130/57
[2021-12-09 16:02] VITALS: BP 130/57
[2021-12-09] MEDS ORDERED: LEVO50TA8 MT (18:30)
[2021-12-09] MEDS ORDERED: CLOP75TA33 MT (18:30)
[2021-12-09] MEDS ORDERED: FENO67CA13 MT (18:30)
[2021-12-09] MEDS ORDERED: ASPI-1497 MT (18:30)
[2021-12-09] MEDS ORDERED: LEVE10006 MT (18:30)
[2021-12-09] MEDS ORDERED: METO25TA6 MT (18:30)
[2021-12-09 20:00] VITALS: BP 115/61
[2021-12-10] VITALS: BP 117/80
[2021-12-10] MEDS: LAMOTRIGINE 25MG TABLET PO SCH ×2 (00:18→08:31)
[2021-12-10 04:00] VITALS: BP 113/54
[2021-12-10 06:16] LABS: BASOPHILS % 0.9 % (0.0-2.0); EOSINOPHILS % 0.2 % (0.0-5.0); HEMATOCRIT. 29.3 % (42.0-52.0); HEMOGLOBIN. 9.8 g/dL (14.0-18.0); LYMPHOCYTES % 18.7 % (20.0-50.0); MEAN CORPUSCULAR VOLUME 86.7 fL (80.0-94.0); MEAN PLATELET VOLUME 7.9 fl (7.4-10.4); MONOCYTES % 13.5 % (2.0-8.0); NEUTROPHILS % 66.7 % (40.0-76.0); PLATELET 283 x1000/uL (130-400); RED BLOOD CELL COUNT 3.38 mill/uL (4.7-6.1); RED CELL DISTRIBUTION WIDTH 17.2 % (11.6-14.6)
[2021-12-10 06:30] LABS: CHLORIDE 106 mEq/L (98-107)
[2021-12-10 06:36] LABS: HDL CHOLESTEROL 41 mg/dL (40-59); LDL CHOLESTEROL 119 mg/dL (5-100); TOTAL IRON BINDING CAPACITY 493 ug/dL (250-450)
[2021-12-10 07:07] LABS: VITAMIN B12 SERUM 357 pg/mL (211-911)
[2021-12-10 08:00] VITALS: BP 150/67
[2021-12-10] MEDS: SODIUM CHLORIDE 0.45% 1,000 ML IV SCH ×2 (08:21→08:31)
[2021-12-10] MEDS: ASPIRIN 81MG EC TABLET PO SCH (08:31)
[2021-12-10] MEDS: CLOPIDOGREL 75MG TABLET PO SCH (08:31)
[2021-12-10] MEDS ORDERED: LEVETIRACETAM 500MG TABLET PO SCH (09:00)
[2021-12-10] MEDS ORDERED: IRON SUCROSE COMPLEX 100 MG/5 ML ML IV ONE (09:10)
[2021-12-10] MEDS ORDERED: POTASSIUM CHLORIDE 20MEQ/PACKET PO NR (09:30)
[2021-12-10] MEDS ORDERED: IRON SUCROSE COMPLEX 100 MG/5 ML ML IV SCH (10:00)
[2021-12-10 12:00] VITALS: BP 110/63
[2021-12-10 16:00] VITALS: BP 104/59
[2021-12-10 16:29] VITALS: BP 104/59
== END 2021-12-10 18:47 | disposition home or self-care (01) | DRG 69 ==
LOC: ER 16:59 → MICUSO 20:36 → 8WST 12-09 18:25
PROVIDERS: ADMIT Internal Medicine; ATTEND Internal Medicine
PROC: 4A10X4Z Monitoring of Central Nervous Electrical Activity, External Approach (ICD-10-PCS; principal; 2021-12-10)
DX: G45.9 Transient cerebral ischemic attack, unspecified (principal); G93.41 Metabolic encephalopathy; E78.00 Pure hypercholesterolemia, unspecified; I25.10 Atherosclerotic heart disease of native coronary artery without angina pectoris; I11.0 Hypertensive heart disease with heart failure; I50.9 Heart failure, unspecified; D64.9 Anemia, unspecified; E86.0 Dehydration; Z87.820 Personal history of traumatic brain injury; I25.2 Old myocardial infarction; Z79.82 Long term (current) use of aspirin; Z79.899 Other long term (current) drug therapy; Z79.02 Long term (current) use of antithrombotics/antiplatelets
CPT/HCPCS: 36415; 71045; 80048; 80053; 80061; 80305; 80320; 81003; 82607; 82962; 83540; 83550; 84484; 85025; 85044; 93005; 93306; 95816; 99285; G0480

== ENCOUNTER 2022-01-23 09:37 | Emergency (ER) | payer OTHER, MEDICAID ==
[~2022-01-23] VITALS: Ht 170.2 cm; Wt 69.0 kg
[~2022-01-23 09:37] MED LIST changes: -DIVA500T3 PO; +FENO67CA13 MT; +LEVO50TA8 MT
[2022-01-23] MEDS ORDERED: LEVETIRACETAM 500MG PREMIX 100 ML IV ONE (10:00)
[2022-01-23 10:28] LABS: BASOPHILS % 0.6 % (0.0-2.0); EOSINOPHILS % 0.8 % (0.0-5.0); HEMATOCRIT. 37.5 % (42.0-52.0); HEMOGLOBIN. 11.9 g/dL (14.0-18.0); LYMPHOCYTES % 10.8 % (20.0-50.0); MEAN CORPUSCULAR VOLUME 85.3 fL (80.0-94.0); MONOCYTES % 7.4 % (2.0-8.0); NEUTROPHILS % 80.4 % (40.0-76.0); PLATELET 274 x1000/uL (130-400); RED BLOOD CELL COUNT 4.39 mill/uL (4.7-6.1); RED CELL DISTRIBUTION WIDTH 25.6 % (11.6-14.6)
[2022-01-23 10:38] LABS: CHLORIDE 110 mEq/L (98-107)
[2022-01-23 10:47] LABS: ETHANOL BLOOD < 10 mg/dL
[2022-01-23 11:05] LABS: CLARITY URINE CLEAR (CLEAR); COLOR URINE YELLOW (YELLOW); KETONES URINE NEGATIVE (NEGATIVE); LEUKOCYTE ESTERASE URINE NEGATIVE (NEGATIVE); NITRITE URINE NEGATIVE (NEGATIVE); OCCULT BLOOD URINE NEGATIVE (NEGATIVE); PH URINE 5.5 (4.5-8.0); PROTEIN URINE NEGATIVE (NEGATIVE); SPECIFIC GRAVITY URINE 1.014 (1.005-1.030); UROBILINOGEN URINE 0.2 E.U./dL (0.2-1.0)
[2022-01-23 11:32] LABS: *AMPHETAMINES SCREEN URINE NEGATIVE (NEGATIVE); *BARBITURATES SCREEN URINE NEGATIVE (NEGATIVE); *BENZODIAZEPINES SCREEN URINE NEGATIVE (NEGATIVE); *COCAINE SCREEN URINE NEGATIVE (NEGATIVE); CANNABINOID URINE SCREEN NEGATIVE (NEGATIVE); METHADONE URINE SCREEN NEGATIVE (NEGATIVE); OPIATES URINE SCREEN NEGATIVE (NEGATIVE); PHENCYCLIDINE URINE SCREEN NEGATIVE (NEGATIVE)
[2022-01-23 11:58] LABS: PLATELET ESTIMATE NORMAL
[2022-01-23] MEDS ORDERED: KEPP500 MT (12:31)
[2022-01-23 13:02] VITALS: BP 125/70
== END 2022-01-23 13:04 | disposition home or self-care (01) ==
LOC: ER 09:59
DX: R56.9 Unspecified convulsions (principal); R53.1 Weakness; R42 Dizziness and giddiness; E78.00 Pure hypercholesterolemia, unspecified; I10 Essential (primary) hypertension; I25.2 Old myocardial infarction; Z79.899 Other long term (current) drug therapy
CPT/HCPCS: 36415; 70450; 71045; 80053; 80305; 80320; 81003; 85025; 93005; 96365; 99285; J1953; G0480

== ENCOUNTER 2022-02-08 10:57 | Inpatient (IN) | payer OTHER, MEDICAID ==
[2022-02-08] VITALS (9 sets, daily range): BP systolic 81–125; BP diastolic 52–73
[~2022-02-08] VITALS: Ht 165.1 cm; Wt 58.5 kg
[~2022-02-08 10:57] MED LIST changes: +NICARDIPINE 100MCG/ML 10ML VIAL (CATH LAB) IV ONE; +NITROGLYCERIN 50MCG/ML 10ML VIAL (CATH LAB) IV ONE
[2022-02-08] MEDS ORDERED: FISH GT (12:18)
[2022-02-08] MEDS ORDERED: ISOS30TA12 PO (12:18)
[2022-02-08] MEDS ORDERED: LAMO25TA9 PO (12:18)
[2022-02-08] MEDS ORDERED: NITR0.4T SL (12:18)
[2022-02-08] MEDS ORDERED: FENO40TA4 PO (12:18)
[2022-02-08] MEDS ORDERED: MIDAZOLAM HCL 2 MG/2 ML VIAL ONE (12:26)
[2022-02-08] MEDS ORDERED: IODIXANOL 320MG/ML 100 ML BOTTLE IV ONE (12:26)
[2022-02-08] MEDS ORDERED: FENTANYL CITRATE/PF 50MCG/ML 2ML VIAL ONE (12:26)
[2022-02-08] MEDS ORDERED: HEPARIN SODIUM 1,000 UNIT/1ML VIAL IV ONE (12:26)
[2022-02-08] MEDS ORDERED: LIDOCAINE HCL/PF 2% 20MG/ML 5 ML/VIAL ONE (12:31)
[2022-02-08] MEDS ORDERED: HEPARIN 1000 UNITS/ML 10ML ONE (13:28)
[2022-02-08] MEDS ORDERED: IODIXANOL 320 MG/ML 150ML BOTTLE IV ONE (13:42)
[2022-02-08] MEDS ORDERED: ATROPINE SULFATE 1MG/10ML SYR ONE (14:19)
[2022-02-08] MEDS ORDERED: ACETAMINOPHEN 325MG TABLET PO PRN (14:45)
[2022-02-08] MEDS ORDERED: NITROGLYCERIN OINT 1GM/INCH UDPKT TD PRN (15:00)
[2022-02-08] MEDS: ATORVASTATIN CALCIUM 40MG TABLET PO SCH (20:59)
[2022-02-08] MEDS: AMLODIPINE 2.5MG TABLET PO SCH (20:59)
[2022-02-08] MEDS: LEVETIRACETAM 500MG TABLET PO SCH (20:59)
[2022-02-08] MEDS ORDERED: ZOLPIDEM TARTRATE 5MG TABLET PO PRN (21:00)
[2022-02-09] VITALS (22 sets, daily range): BP systolic 99–126; BP diastolic 59–88
[2022-02-09 05:42] LABS: CHLORIDE 108 mEq/L (98-107)
[2022-02-09 06:30] LABS: BASOPHILS % 0.9 % (0.0-2.0); EOSINOPHILS % 3.8 % (0.0-5.0); HEMATOCRIT. 37.1 % (42.0-52.0); HEMOGLOBIN. 12.1 g/dL (14.0-18.0); LYMPHOCYTES % 22.2 % (20.0-50.0); MEAN CORPUSCULAR HEMOGLOBIN 27.8 pg (28.0-32.0); MEAN CORPUSCULAR VOLUME 85.3 fL (80.0-94.0); MEAN PLATELET VOLUME 7.9 fl (7.4-10.4); NEUTROPHILS % 62.1 % (40.0-76.0); PLATELET 292 x1000/uL (130-400); RED BLOOD CELL COUNT 4.34 mill/uL (4.7-6.1); RED CELL DISTRIBUTION WIDTH 24.7 % (11.6-14.6)
[2022-02-09] MEDS: CLOPIDOGREL 75MG TABLET PO SCH (08:36)
[2022-02-09] MEDS: LEVETIRACETAM 500MG TABLET PO SCH ×2 (08:36→21:01)
[2022-02-09] MEDS: ASPIRIN 81MG TABLET PO SCH (08:36)
[2022-02-09] MEDS: AMLODIPINE 2.5MG TABLET PO SCH ×2 (08:40→21:00)
[2022-02-09] MEDS ORDERED: SODIUM CHLORIDE 0.45% 500 ML IV ONE (09:45)
[2022-02-09] MEDS ORDERED: IODIXANOL 320MG/ML 100 ML BOTTLE IV ONE (12:07)
[2022-02-09] MEDS ORDERED: HEPARIN 1000 UNITS/ML 10ML ONE (12:20)
[2022-02-09] MEDS ORDERED: FENTANYL CITRATE/PF 50MCG/ML 2ML VIAL ONE (12:45)
[2022-02-09] MEDS ORDERED: MIDAZOLAM HCL 2 MG/2 ML VIAL ONE (12:45)
[2022-02-09] MEDS ORDERED: ASPIRIN/SOD BICARB/CITRIC ACID 324MG TAB EFF ONE (12:48)
[2022-02-09] MEDS ORDERED: NICARDIPINE 100MCG/ML 10ML VIAL (CATH LAB) IV ONE (14:00)
[2022-02-09] MEDS ORDERED: NITROGLYCERIN 50MCG/ML 10ML VIAL (CATH LAB) IV ONE (14:00)
[2022-02-09] MEDS ORDERED: CLOPIDOGREL 75MG TABLET ONE (14:05)
[2022-02-09] MEDS ORDERED: LIDOCAINE HCL/PF 1% 10 MG/ML 5ML VIAL ONE (14:39)
[2022-02-09] MEDS ORDERED: ATROPINE SULFATE 1MG/10ML SYR IV PRN (16:00)
[2022-02-09] MEDS: ATORVASTATIN CALCIUM 40MG TABLET PO SCH (21:01)
[2022-02-10 01:57] VITALS: BP 111/58
[2022-02-10 03:57] VITALS: BP 104/65
[2022-02-10 05:57] VITALS: BP 105/61
[2022-02-10 06:22] LABS: BASOPHILS % 0.9 % (0.0-2.0); EOSINOPHILS % 3.3 % (0.0-5.0); HEMATOCRIT. 37.6 % (42.0-52.0); HEMOGLOBIN. 12.1 g/dL (14.0-18.0); LYMPHOCYTES % 13.8 % (20.0-50.0); MEAN CORPUSCULAR HEMOGLOBIN 27.6 pg (28.0-32.0); MEAN CORPUSCULAR VOLUME 85.5 fL (80.0-94.0); MEAN PLATELET VOLUME 7.9 fl (7.4-10.4); MONOCYTES % 11.2 % (2.0-8.0); NEUTROPHILS % 70.8 % (40.0-76.0); PLATELET 273 x1000/uL (130-400); RED CELL DISTRIBUTION WIDTH 24.8 % (11.6-14.6)
[2022-02-10 06:40] LABS: CHLORIDE 107 mEq/L (98-107)
[2022-02-10] MEDS: CLOPIDOGREL 75MG TABLET PO SCH (08:06)
[2022-02-10] MEDS: LEVETIRACETAM 500MG TABLET PO SCH (08:06)
[2022-02-10] MEDS: ASPIRIN 81MG TABLET PO SCH (08:06)
[2022-02-10 08:08] VITALS: BP 111/71
[2022-02-10] MEDS: AMLODIPINE 2.5MG TABLET PO SCH (08:08)
[2022-02-10 09:52] LABS: PLATELET ESTIMATE NORMAL
[2022-02-10 09:58] VITALS: BP 111/71
== END 2022-02-10 11:15 | disposition home or self-care (01) | DRG 251 ==
LOC: CCL 10:57 → 3WST 15:28
PROVIDERS: ADMIT Specialist; ATTEND Specialist
PROC: 4A023N7 Measurement of Cardiac Sampling and Pressure, Left Heart, Percutaneous Approach (ICD-10-PCS; 2022-02-08)
PROC: B2111ZZ Fluoroscopy of Multiple Coronary Arteries using Low Osmolar Contrast (ICD-10-PCS; 2022-02-08)
PROC: B2151ZZ Fluoroscopy of Left Heart using Low Osmolar Contrast (ICD-10-PCS; 2022-02-08)
PROC: 02703ZZ Dilation of Coronary Artery, One Artery, Percutaneous Approach (ICD-10-PCS; 2022-02-08)
PROC: 02F03ZZ Fragmentation in Coronary Artery, One Artery, Percutaneous Approach (ICD-10-PCS; principal; 2022-02-09)
DX: T82.855A Stenosis of coronary artery stent, initial encounter (principal); S06.9X9A Unspecified intracranial injury with loss of consciousness of unspecified duration, initial encounter; I25.10 Atherosclerotic heart disease of native coronary artery without angina pectoris; I10 Essential (primary) hypertension; E03.9 Hypothyroidism, unspecified; Z79.899 Other long term (current) drug therapy; Z79.02 Long term (current) use of antithrombotics/antiplatelets; Z79.82 Long term (current) use of aspirin; Y84.0 Cardiac catheterization as the cause of abnormal reaction of the patient, or of later complication, without mention of misadventure at the time of the procedure; Y92.89 Other specified places as the place of occurrence of the external cause
CPT/HCPCS: 36415; 80048; 83735; 85025; 85347; 92920; 93005; 93458; C1725; C1769; C1887; C1893; J0461; J1644; J2250; J3010; J3490; Q9967; C1761

== ENCOUNTER 2022-02-16 09:54 | Emergency (ER) | payer MEDICAID, OTHER ==
[~2022-02-16] VITALS: Ht 165.1 cm; Wt 59.0 kg
[~2022-02-16 09:54] MED LIST changes: -FENO67CA13 MT; -FOLI-43 MT; +LAMO25TA9 PO; -LEVE500T98 MT; -LEVO50TA8 MT; -METO25TA6 MT; -NICARDIPINE 100MCG/ML 10ML VIAL (CATH LAB) IV ONE; +NITR0.4T SL; -NITROGLYCERIN 50MCG/ML 10ML VIAL (CATH LAB) IV ONE
[2022-02-16] MEDS ORDERED: LEVETIRACETAM 500MG PREMIX 100 ML IV ONE (10:30)
[2022-02-16 10:42] VITALS: BP 126/73
[2022-02-16 11:18] LABS: BASOPHILS % 0.8 % (0.0-2.0); EOSINOPHILS % 1.1 % (0.0-5.0); HEMATOCRIT. 39.1 % (42.0-52.0); HEMOGLOBIN. 12.8 g/dL (14.0-18.0); LYMPHOCYTES % 9.5 % (20.0-50.0); MEAN CORPUSCULAR HEMOGLOBIN 27.7 pg (28.0-32.0); MEAN CORPUSCULAR VOLUME 84.6 fL (80.0-94.0); MEAN PLATELET VOLUME 8.2 fl (7.4-10.4); MONOCYTES % 6.2 % (2.0-8.0); NEUTROPHILS % 82.4 % (40.0-76.0); PLATELET 257 x1000/uL (130-400); RED BLOOD CELL COUNT 4.63 mill/uL (4.7-6.1); RED CELL DISTRIBUTION WIDTH 23.8 % (11.6-14.6)
[2022-02-16 11:19] LABS: CHLORIDE 107 mEq/L (98-107)
[2022-02-16 11:26] LABS: ETHANOL BLOOD < 10 mg/dL
[2022-02-16 12:09] LABS: PLATELET ESTIMATE NORMAL
== END 2022-02-16 13:06 | disposition home or self-care (01) ==
LOC: ER 09:54
DX: G40.909 Epilepsy, unspecified, not intractable, without status epilepticus (principal); I10 Essential (primary) hypertension; I25.2 Old myocardial infarction
CPT/HCPCS: 36415; 80053; 80320; 82962; 85025; 96374; 99283; J1953; G0480

== ENCOUNTER 2022-06-24 06:26 | Emergency (ER) | payer OTHER ==
[~2022-06-24] VITALS: Ht 154.9 cm; Wt 63.5 kg
[2022-06-24] MEDS ORDERED: LEVETIRACETAM 1000MG PREMIX 100 ML IV ONE (06:45)
[2022-06-24 07:03] LABS: CHLORIDE 104 mEq/L (98-107)
[2022-06-24 07:11] LABS: ETHANOL BLOOD < 10 mg/dL
[2022-06-24 07:22] LABS: BASOPHILS % 0.6 % (0.0-2.0); EOSINOPHILS % 3.5 % (0.0-5.0); HEMATOCRIT. 43.5 % (42.0-52.0); HEMOGLOBIN. 14.8 g/dL (14.0-18.0); LYMPHOCYTES % 21.5 % (20.0-50.0); MEAN CORPUSCULAR HEMOGLOBIN 30.9 pg (28.0-32.0); MEAN CORPUSCULAR VOLUME 90.8 fL (80.0-94.0); MEAN PLATELET VOLUME 8.6 fl (7.4-10.4); MONOCYTES % 8.1 % (2.0-8.0); NEUTROPHILS % 66.3 % (40.0-76.0); PLATELET 211 x1000/uL (130-400); RED BLOOD CELL COUNT 4.79 mill/uL (4.7-6.1); RED CELL DISTRIBUTION WIDTH 15.3 % (11.6-14.6)
[2022-06-24 08:04] VITALS: BP 120/61
[2022-06-24 08:42] LABS: CLARITY URINE CLEAR (CLEAR); COLOR URINE YELLOW (YELLOW); KETONES URINE TRACE (NEGATIVE); LEUKOCYTE ESTERASE URINE NEGATIVE (NEGATIVE); NITRITE URINE NEGATIVE (NEGATIVE); OCCULT BLOOD URINE NEGATIVE (NEGATIVE); PH URINE 6.5 (4.5-8.0); PROTEIN URINE NEGATIVE (NEGATIVE); SPECIFIC GRAVITY URINE 1.014 (1.005-1.030); UROBILINOGEN URINE 0.2 E.U./dL (0.2-1.0)
[2022-06-24 09:06] LABS: *AMPHETAMINES SCREEN URINE NEGATIVE (NEGATIVE); *BARBITURATES SCREEN URINE NEGATIVE (NEGATIVE); *BENZODIAZEPINES SCREEN URINE NEGATIVE (NEGATIVE); *COCAINE SCREEN URINE NEGATIVE (NEGATIVE); CANNABINOID URINE SCREEN NEGATIVE (NEGATIVE); METHADONE URINE SCREEN NEGATIVE (NEGATIVE); OPIATES URINE SCREEN NEGATIVE (NEGATIVE); PHENCYCLIDINE URINE SCREEN NEGATIVE (NEGATIVE)
== END 2022-06-24 09:21 | disposition home or self-care (01) ==
LOC: ER 06:50
DX: R56.9 Unspecified convulsions (principal); E78.00 Pure hypercholesterolemia, unspecified; I10 Essential (primary) hypertension; I25.2 Old myocardial infarction; Z79.899 Other long term (current) drug therapy
CPT/HCPCS: 36415; 80053; 80305; 80320; 81003; 85025; 93005; 96374; 99284; J1953; Z7610; G0480

== ENCOUNTER → 2022-10-06 | Day surgery (SDC) | payer OTHER ==
[~2022-10-06] MED LIST changes: +ACETAMINOPHEN 325MG TABLET PO PRN; +ATROPINE SULFATE 1MG/10ML SYR IV PRN; +FENTANYL CITRATE/PF 50MCG/ML 2ML VIAL ONE; +HEPARIN 1000 UNITS/ML 10ML ONE; +IODIXANOL 320MG/ML 100 ML BOTTLE IV ONE; +ISOS30TA12 PO; +LEVO75TA7 PO; +LIDOCAINE HCL 1% 20ML VIAL (Pyxis) INJ ONE; +METO-539 PO; +MIDAZOLAM HCL 2 MG/2 ML VIAL ONE; +NICARDIPINE 100MCG/ML 10ML VIAL (CATH LAB) IV ONE; +NITROGLYCERIN 50MCG/ML 10ML VIAL (CATH LAB) IV ONE; +OMEG100036 PO; +ONDANSETRON HCL 4MG/2ML INJ IV PRN; +RANO500T6 PO
== END | disposition home or self-care (01) ==
LOC: CCL 08:42
PROVIDERS: ATTEND Specialist
DX: I25.10 Atherosclerotic heart disease of native coronary artery without angina pectoris (principal); I10 Essential (primary) hypertension; E03.9 Hypothyroidism, unspecified; Z79.899 Other long term (current) drug therapy; Z98.890 Other specified postprocedural states; Z79.82 Long term (current) use of aspirin
CPT/HCPCS: 93454; C1760; C1769; C1887; C1893; J1644; J2250; J3010; J3490; Q9967

== ENCOUNTER 2024-04-20 09:10 | Emergency (ER) | payer BC, OTHER ==
[~2024-04-20] VITALS: Ht 157.5 cm; Wt 60.0 kg
[~2024-04-20 09:10] MED LIST changes: -ACETAMINOPHEN 325MG TABLET PO PRN; -ATROPINE SULFATE 1MG/10ML SYR IV PRN; -FENTANYL CITRATE/PF 50MCG/ML 2ML VIAL ONE; -HEPARIN 1000 UNITS/ML 10ML ONE; -IODIXANOL 320MG/ML 100 ML BOTTLE IV ONE; -LAMO25TA9 PO; -LIDOCAINE HCL 1% 20ML VIAL (Pyxis) INJ ONE; -MIDAZOLAM HCL 2 MG/2 ML VIAL ONE; -NICARDIPINE 100MCG/ML 10ML VIAL (CATH LAB) IV ONE; -NITROGLYCERIN 50MCG/ML 10ML VIAL (CATH LAB) IV ONE; -ONDANSETRON HCL 4MG/2ML INJ IV PRN
[2024-04-20 09:15] VITALS: O2SAT 98
[2024-04-20 10:01] LABS: BASOPHILS % 0.5 % (0.0-2.0); EOSINOPHILS % 0.8 % (0.0-5.0); HEMATOCRIT. 43.5 % (42.0-52.0); HEMOGLOBIN. 14.4 g/dL (14.0-18.0); LYMPHOCYTES % 10.8 % (20.0-50.0); MEAN CORPUSCULAR HEMOGLOBIN 31.4 pg (28.0-32.0); MEAN CORPUSCULAR HGB CONC 33.2 g/dL (31.0-37.0); MEAN CORPUSCULAR VOLUME 94.8 fL (80.0-94.0); MEAN PLATELET VOLUME 8.9 fl (7.4-10.4); MONOCYTES % 8.7 % (2.0-8.0); NEUTROPHILS % 79.2 % (40.0-76.0); PLATELET 196 x1000/uL (130-400); RED BLOOD CELL COUNT 4.58 mill/uL (4.7-6.1); WHITE BLOOD COUNT 9.5 x1000/uL (4.5-11.0)
[2024-04-20 10:09] LABS: CHLORIDE 109 mEq/L (98-107); POTASSIUM 3.9 mEq/L (3.5-5.1); SODIUM 140 mEq/L (136-145)
[2024-04-20 10:10] LABS: CALCIUM 8.7 mg/dL (8.7-10.4); CARBON DIOXIDE 20 mEq/L (21-32)
[2024-04-20 10:15] LABS: GLUCOSE 128 mg/dL (70-105); UREA NITROGEN BLOOD 6 mg/dL (9-23)
[2024-04-20 10:17] LABS: ALANINE AMINOTRANSFERASE 19 IU/L (10-49); ASPARTATE AMINOTRANSFERASE 29 IU/L (<34); BILIRUBIN TOTAL 0.4 mg/dL (0.1-1.0); PROTEIN TOTAL 6.7 g/dL (6.0-8.3)
[2024-04-20 10:23] LABS: ETHANOL BLOOD < 10 mg/dL (<10)
[2024-04-20 10:53] LABS: CLARITY URINE CLEAR (CLEAR); COLOR URINE YELLOW (YELLOW); GLUCOSE URINE NEGATIVE (NEGATIVE); KETONES URINE NEGATIVE (NEGATIVE); LEUKOCYTE ESTERASE URINE NEGATIVE (NEGATIVE); NITRITE URINE NEGATIVE (NEGATIVE); OCCULT BLOOD URINE 1+ (NEGATIVE); PROTEIN URINE NEGATIVE (NEGATIVE); SPECIFIC GRAVITY URINE 1.013 (1.005-1.030); UROBILINOGEN URINE 0.2 E.U./dL (0.2-1.0)
[2024-04-20 11:33] LABS: *AMPHETAMINES SCREEN URINE NEGATIVE (NEGATIVE)
[2024-04-20 11:34] LABS: *BARBITURATES SCREEN URINE NEGATIVE (NEGATIVE); *BENZODIAZEPINES SCREEN URINE NEGATIVE (NEGATIVE); *COCAINE SCREEN URINE NEGATIVE (NEGATIVE); METHADONE URINE SCREEN NEGATIVE (NEGATIVE); OPIATES URINE SCREEN NEGATIVE (NEGATIVE)
[2024-04-20 11:35] LABS: CANNABINOID URINE SCREEN NEGATIVE (NEGATIVE); ECSTASY MDMA SCREEN URINE NEGATIVE (NEGATIVE); PHENCYCLIDINE URINE SCREEN NEGATIVE (NEGATIVE)
[2024-04-20 11:41] LABS: MUCUS URINE TRACE /lpf (NONE/TRACE); RBC URINE NONE SEEN /hpf (0-2); SQUAMOUS EPITHELIAL CELL URINE RARE /lpf (RARE/1+); WBC URINE 0-2 /hpf (0-2)
[2024-04-20 11:42] LABS: BACTERIA URINE NONE SEEN
[2024-04-20 12:01] VITALS: BP 137/74; PULSE 76; RESP 18; TEMP 36.72516; O2SAT 100
== END 2024-04-20 12:05 | disposition home or self-care (01) ==
LOC: ER 09:23
DX: R56.9 Unspecified convulsions (principal); I25.2 Old myocardial infarction; I10 Essential (primary) hypertension; E78.00 Pure hypercholesterolemia, unspecified; Z79.899 Other long term (current) drug therapy; Z79.82 Long term (current) use of aspirin; Z98.890 Other specified postprocedural states; Z86.59 Personal history of other mental and behavioral disorders
CPT/HCPCS: 36415; 80053; 80305; 80320; 81003; 85025; 99283; G0480

== ENCOUNTER 2024-09-13 08:30 | Emergency (ER) | payer MEDICAID ==
[~2024-09-13] VITALS: Ht 162.6 cm; Wt 59.0 kg
[2024-09-13 08:33] VITALS: O2SAT 98
[2024-09-13 08:55] VITALS: BP 124/72; PULSE 104; RESP 18; TEMP 37.2; O2SAT 98
[2024-09-13] MEDS: LEVETIRACETAM 500MG TABLET PO ONE (09:10)
== END 2024-09-13 09:21 | disposition home or self-care (01) ==
LOC: ER 08:30
DX: G40.909 Epilepsy, unspecified, not intractable, without status epilepticus (principal); I25.2 Old myocardial infarction; I10 Essential (primary) hypertension; E78.00 Pure hypercholesterolemia, unspecified; Z79.899 Other long term (current) drug therapy; Z79.82 Long term (current) use of aspirin
CPT/HCPCS: 99283; A4606